=== PATIENT | female | born 2000 | race Caucasian/White ===

== ENCOUNTER 2024-10-27 08:11 | Observation (INO) | payer SELFPAY ==
[2024-10-27 08:18] VITALS: BMI 18.6
[2024-10-27] MEDS ORDERED: KETOROLAC TROMETHAMINE 30 MG/1 ML VIAL ONE ×2 (08:46→11:16)
[2024-10-27] MEDS ORDERED: ONDANSETRON 4 MG/2 ML VIAL ONE ×2 (08:46→09:37)
[2024-10-27] MEDS: SODIUM CHLORIDE 0.9% 500 ML INFUS.BAG IV ONE ×2 (08:54→10:31)
[2024-10-27] MEDS: ONDANSETRON 4 MG/2 ML VIAL IVPUSH ONE ×2 (08:55→09:42)
[2024-10-27] MEDS: KETOROLAC TROMETHAMINE 30 MG/1 ML VIAL IVPB ONE ×2 (08:55→11:19)
[2024-10-27 09:05] LABS: BASO % 0.5 % (0-2.0); HEMATOCRIT 40.6 % (32.4-45.2); HEMOGLOBIN 13.5 GM/dL (10.7-15.3); MCH 26.7 pg (25.7-33.7); MCHC 33.2 g/dl (32.0-36.0); MEAN CELL VOLUME 80.4 fl (80-96); MEAN PLT VOLUME 10.8 fl (7.5-11.1); MONO % 3.3 % (3.8-10.2); NEUT % 90.2 % (42.8-82.8); PLATELET COUNT 262 10^3/uL (134-434); RBC 5.05 M/mm3 (3.60-5.2); RDW 14.1 % (11.6-15.6); WHITE BLOOD COUNT 15.1 K/mm3 (4.0-10.0)
[2024-10-27] MEDS ORDERED: MORPHINE SULFATE 2 MG/ML SYRINGE ONE ×2 (09:08→09:36)
[2024-10-27] MEDS: morphine CARPU-JECT 2 MG/1 ML DISP.SYRIN IVPUSH ONE ×2 (09:10→09:41)
[2024-10-27 09:48] LABS: CALCIUM 9.8 mg/dL (8.5-10.1)
[2024-10-27 09:49] LABS: ALBUMIN 4.2 g/dl (3.4-5.0); BLOOD UREA NITROGEN 14.7 mg/dL (7-18)
[2024-10-27 09:52] LABS: CREATININE 1.4 mg/dL (0.55-1.3)
[2024-10-27 09:53] LABS: BILIRUBIN,TOTAL 0.9 mg/dL (0.2-1)
[2024-10-27 09:54] LABS: TOT PROT 7.5 g/dl (6.4-8.2)
[2024-10-27 10:23] LABS: EPI CELLS >36 /uL (0-25.1); HYALINE CASTS 2 /uL (0-3.1); PH,URINE 8.5 (5.0-8.0); URINE APPEARANCE CLEAR; URINE BACTERIA 170 /uL (0-1359); URINE BILIRUBIN NEGATIVE (NEGATIVE); URINE COLOR YELLOW; URINE GLUCOSE (UA) NEGATIVE (NEGATIVE); URINE KETONE 2+ (NEGATIVE); URINE LEUK ESTERASE NEGATIVE (NEGATIVE); URINE NITRITE NEGATIVE (NEGATIVE); URINE PROTEIN 1+ (NEGATIVE); URINE RBC 903 /uL (0-23.9); URINE UROBILINOGEN 0.2 mg/dL (0.2-1.0); URINE WBC 21 /uL (0-25.8)
[2024-10-27] MEDS ORDERED: ACETAMINOPHEN INJECTION 100 ML ONE (11:08)
[2024-10-27] MEDS: ACETAMINOPHEN 1000 MG/100 ML BAG IVPB ONE (11:11)
[2024-10-27] MEDS ORDERED: morphine CARPU-JECT 4 MG/1 ML DISP.SYRIN IVPUSH ONE (12:52)
[2024-10-27] MEDS ORDERED: MORPHINE SULFATE 2 MG/ML SYRINGE IVPUSH PRN (14:38)
[2024-10-27] MEDS: SODIUM CHLORIDE 1,000 ML IV SCH (14:40)
[2024-10-27] MEDS ORDERED: KETOROLAC TROMETHAMINE 15 MG/ML VIAL IVPUSH PRN (14:42)
[2024-10-27] MEDS ORDERED: ONDANSETRON 4 MG/2 ML VIAL IVPUSH PRN (14:44)
[2024-10-27 17:23] VITALS: BP 110/67; PULSE 90; RESP 16; TEMP 98.6
== END 2024-10-27 19:29 | disposition home or self-care (01) ==
LOC: JER 08:11 → JERBED 13:32 → UNDOADMOB 13:32 → INTOOBSV 13:32 → JERBED 14:14
PROVIDERS: ADMIT Student in an Organized Health Care Education/Training Program; ATTEND Student in an Organized Health Care Education/Training Program
PROC: 3E033NZ Introduction of Analgesics, Hypnotics, Sedatives into Peripheral Vein, Percutaneous Approach (ICD-10-PCS; principal; 2024-10-27)
PROC: 3E0333Z Introduction of Anti-inflammatory into Peripheral Vein, Percutaneous Approach (ICD-10-PCS; 2024-10-27)
PROC: 3E033GC Introduction of Other Therapeutic Substance into Peripheral Vein, Percutaneous Approach (ICD-10-PCS; 2024-10-27)
PROC: 3E0337Z Introduction of Electrolytic and Water Balance Substance into Peripheral Vein, Percutaneous Approach (ICD-10-PCS; 2024-10-27)
DX: N20.1 Calculus of ureter (principal); Z87.442 Personal history of urinary calculi
CPT/HCPCS: 36415; 74176-TC; 80053; 81003; 84703; 85025; 87086; 99285-25; G0378; J0131